=== PATIENT | male | born 1980 | race Caucasian/White ===

== ENCOUNTER 2016-09-30 09:52 | Emergency (ER) | payer OTHER ==
[~2016-09-30] VITALS: Ht 177.8 cm; Wt 113.6 kg
[2016-09-30 10:08] VITALS: BP 133/92; PULSE 87; RESP 16; O2SAT 96
--- NOTE | 2016-09-30 10:10 | ED.REPORT ---
HPI-Chest Pain Under 40 Date of Service Sep 30, 2016 ED Provider: Dr. Ryan Pt is a 35 y/o healthy male presenting to the ED c/o sharp left lateral CP onset 2 days ago. His pain began suddenly 2 days ago and the next morning he woke up with sharp left lateral neck pain. He c/o associated hot/cold flashes, chills, diaphoresis. His pain is exacerbated by laying on his left side. He c/o associated mild cough, pleuritic chest and neck pain, SOB. Pt has never experienced similar symptoms. Pt denies any medical history, medications, previous surgeries, any family history of cardiac or PE. Nursing Notes Stated Complaint: SHARP PAIN ON LEFT SIDE Chief Complaint: Chest Pain-Non Cardiac Nature Nursing Notes Reviewed: Yes Allergies: Coded Allergies: No Known Allergies (Unverified , 09/30/16) Scheduled Azithromycin (Zithromax (Z-Isai)) 250 Mg Tablet 250 MG PO DIRECTED Take two tablets by mouth on day 1, then take one tablet daily on days 2 through 5. General Time Seen by MD: 10:09 Chief Complaint Chest pain Hx Obtained From: Patient Arrived By: Walk-in Sudden in Onset?: Yes Onset Occurred: 2 days ago Symptom Duration: Since onset Location: : Chest left Quality: Painful, Sharp Severity: Current: Moderate Severity: Maximum: Moderate Past Medical History Past Medical History Previous back pain Otherwise denies Past Surgical History Denies Family History Denies Ambulatory Status Independent Review of Systems Constitutional: Reports: Chills, Fever Respiratory: Reports: Non-productive cough, Pleuritic pain, Shortness of breath Cardiovascular: Reports: Chest pain GI: Denies: Abdominal pain, Diarrhea, Nausea, Vomiting Musculoskeletal: Reports: Neck pain, Denies: Back pain Skin: Reports Diaphoresis, Denies Rash Complete sys rev & neg: except as marked. Endocrine: Reports: Cold intolerance, Heat intolerance Physical Exam Initial Vital Signs Vital Signs (First) Date Time Temp Pulse Resp B/P Pulse Ox O2 Delivery O2 Flow Rate FiO2 09/30/16 10:08 38.3 87 16 133/92 96 Room Air Initial VS: Reviewed, Vital signs normal Head / Eyes: Atraumatic, Normocephalic, PERRL ENT: Mucous membranes moist, Conjunctiva normal, No scleral icterus Neck: Supple, Full range of motion Abdomen / GI: Soft, Non-tender, No guarding, No rebound, No distention Extremities: Vascular intact, Neuro intact, No swelling, No tenderness Skin: Warm, Dry, No cyanosis Neurologic: Alert, Oriented, Nonfocal Psychiatric: Mood/affect normal, Behavior normal, Normal thought content General/Constitutional: Awake, Alert, No acute distress, Well appearing, Cooperative, Not toxic appearing Respiratory / Chest: Atraumatic, Breath sounds NL, Breath sounds = bilat, No respiratory distress, No rales, No rhonchi, No wheezing, No retractions, No stridor, No chest wall deformity, No crepitus Focal tenderness to palpation about the 10-11th intercostal space Cardiovascular: Heart rate NL, Regular rhythm, Heart sounds NL, No gallop, No murmurs, No rubs, Cap refill not delayed, Peripheral circulation NL Interpretation & Diagnostics ECG Interpretation Time: 10:37 Interpreted by: ED physician Normal ECG Interpretation: Normal ECG w/ rate of... (64), Normal rate, Normal sinus rhythm, No acute ischemic changes, Normal QRS, Normal axis, Normal intervals, No change from prior ECGs, Adequate tracing X-Ray Chest Interpretation Chest Xray Interpretation: IMPRESSION: 1. Left lower lobe airspace opacities compatible with consolidation and likely representing pneumonia. Recommend correlation with clinical history. Dictated by: Isreal Pruitt M.D. on 09/30/2016 at 11:14 Approved by: Isreal Pruitt M.D. on 09/30/2016 at 11:15 View: Portable, AP & lat Interpretation / Wet Read by: Interpret - Radiologist Re-Eval/Medical Decision Med Decision/Clinical Course 35-year-old male with unremarkable past medical history presents with fever and pleuritic chest pain with deep breathing on the left side. He notes fevers and chills last night. No history of pneumonia previously. X-ray shows left lower lobe consolidation consistent with pneumonia. I had initially discussed with patient the differential that could include pneumothorax, pulmonary embolus, or cardiac condition. Patient has no risk factors for heart disease including family history, high blood pressure, or hyperlipidemia. Patient does not smoke. He has no risk factors for pulmonary embolus including leg swelling or pain, no history of prolonged immobilization and no family history of blood clots. Lab was late to collect blood and by that time x-ray had returned explaining our diagnosis. I gave the patient a choice if he would like to have blood work drawn that I did not feel it was necessary at this point. Patient agrees and would like to go home. Discharge with azithromycin and instructions for follow-up. Pain was improved with Toradol. Re-Evaluation/Progress : Time of Eval: 11:35 Patient Status: Condition improved, Moderate relief, Pain improved Re-Evaluation/Progress Note: Pt rechecked. Informed pt of plan for treatment. Pt understands and agrees with plan for treatment. F/U and RTER warnings given. All questions addressed. Counseled Regarding: Diagnosis, Lab results, Need for follow-up, When/why to return to ED Discharge & Departure Primary Impression: Left lower lobe pneumonia Pneumonia type: due to unspecified organism Qualified Code: J18.9 - Pneumonia, unspecified organism Disposition: Home Discharge Condition All VS Reviewed: Yes Condition: Stable Patient Instructions: Bacterial Pneumonia (ED) Additional Instructions: Your x-ray showed signs of left lower lobe pneumonia. Take the full course antibiotics as prescribed. Take this with food. Take 600 mg Ibuprofen every 6 hours as needed for discomfort or fever. Stay well hydrated. Return to the emergency department for worsening trouble breathing, unrelenting high fever, profound weakness or fatigue, persistent vomiting, or for other concerning symptoms. Follow-up with your regular doctor later next week or earlier if your symptoms persist. Off work on Sunday. Referrals: Juan June MD Attestation Portions of this note were transcribed by Long [place]. I, Dr. Ryan personally performed the history, physical exam and medical decision-making; I reviewed and confirmed the accuracy of the information in the transcribed note. Signed by Alyx Chiu, 09/30/16 - 1100 copies to: Juan June MD, Gary R DO Sep 30, 2016 10:10 LONG CRAB[place] Sep 30, 2016 10:26
--- NOTE | 2016-09-30 11:22 | DRSVH ---
PROCEDURE: X-RAY CHEST, TWO VIEWS ([id number]) INDICATIONS: chest pain, sob TECHNIQUE: 2 views of the chest were acquired. COMPARISON: None. FINDINGS: Surgical changes and devices: None. Lungs and pleura: No pleural effusions or pneumothorax. There are low lung volumes with confluent a irspace opacities in the left lower lobe. Mediastinum: Mediastinal contours are normal. Heart size is normal. Bones and chest wall: No suspicious bony abnormalities. Soft tissues appear unremarkable. IMPRESSION: 1. Left lower lobe airspace opacities compatible with consolidation and likely representing pneumoni a. Recommend correlation with clinical history. Dictated by: Isreal Pruitt M.D. on 09/30/2016 at 11:14 Approved by: Isreal Pruitt M.D. on 09/30/2016 at 11:15
[2016-09-30] MEDS ORDERED: AZIT250T4 PO (11:36)
[2016-09-30 11:47] VITALS: BP 128/81; PULSE 85; O2SAT 94
== END 2016-09-30 11:49 | disposition home or self-care (01) ==
LOC: SED 09:52
DX: J18.9 Pneumonia, unspecified organism (principal)
CPT/HCPCS: 71020; 96372; 99284; J1885